=== PATIENT | female | born 1935 | race Caucasian/White ===

== ENCOUNTER 2021-10-08 15:34 | Inpatient (IN) | payer MEDICARE, OTHER ==
[~2021-10-08] VITALS: Ht 165.1 cm; Wt 75.7 kg
--- NOTE | 2021-10-08 15:56 | NUR ---
BIB CAREGIVER FOR COUGH, SOB, N/V/D/ GENERALIZED WEAKNESS X 10 DAYS. ALERT AND ORIENTED X4. DENIES PAIN. ATTACHED TO THE MONITOR.
--- NOTE | 2021-10-08 15:57 | NUR ---
DR TRUONG AT THE BEDSIDE
--- NOTE | 2021-10-08 16:22 | NUR ---
X-RAY TECH AT THE BEDSIDE
[2021-10-08] MEDS ORDERED: VANCOMYCIN 1 GM in IV D5W 250 ML IV ONE (16:30)
[2021-10-08] MEDS ORDERED: CEFEPIME 1 GM in IV D5W 50 ML IV ONE (16:30)
[2021-10-08] MEDS ORDERED: IV NS 0.9% 1,000 ML BAG IV ONE (16:30)
[2021-10-08 16:34] LABS: EOSINOPHILS % (AUTO) 0.1 % (0.0-6.0); HEMATOCRIT 38 % (33-45); HEMOGLOBIN 12.1 g/dL (11.5-14.8); MEAN CORPUSCULAR HGB CONC 32 g/dl (31.0-36.0); MEAN CORPUSCULAR VOLUME 89 fL (82-100); MONOCYTES # (AUTO) 0.4 K/uL (0.1-1.30); MONOCYTES % (AUTO) 9.3 % (2.0-12.0); NEUTROPHILS # (AUTO) 1.8 K/uL (1.8-8.9); NEUTROPHILS % (AUTO) 42.6 % (43.0-81.0); PLATELET COUNT (AUTO) 196 K/uL (150-450); RED BLOOD CELL COUNT(AUTO) 4.24 MIL/uL (4.0-5.2); WHITE BLOOD COUNT (AUTO) 4.2 K/uL (4.3-11.0)
[2021-10-08 17:01] LABS: ALANINE AMINOTRANSFERASE 27 U/L (12-78); ALBUMIN 3.6 g/dL (3.4-5.0); ALKALINE PHOSPHATASE 54 U/L (46-116); ASPARTATE AMINOTRANSFERASE 24 U/L (15-37); BILIRUBIN,DIRECT 0.1 mg/dL (0.0-0.2); BILIRUBIN,TOTAL 0.3 mg/dL (0.2-1.0); CALCIUM, SERUM 8.9 mg/dL (8.5-10.1); CARBON DIOXIDE 30 mmol/L (21-32); CHLORIDE 102 mmol/L (98-107); CREATININE 1.4 mg/dL (0.6-1.3); GLUCOSE 119 mg/dL (74-106); POTASSIUM 3.8 mmol/L (3.5-5.1); SODIUM SERUM 139 mmol/L (136-145); TOTAL PROTEIN, SERUM 7.5 g/dL (6.4-8.2); UREA NITROGEN, BLOOD 10 mg/dL (7-18)
--- NOTE | 2021-10-08 17:12 | NUR ---
CALLED NURSING SUP FOR BED
[2021-10-08] MEDS ORDERED: LORAZEPAM INJ 2 MG/ML VIAL ONE (17:19)
[2021-10-08 17:20] LABS: BILIRUBIN,URINE NEGATIVE (NEGATIVE); COLOR,URINE YELLOW (YELLOW); LEUKOCYTE ESTERASE ,URINE SMALL (NEGATIVE); NITRITE, URINE NEGATIVE (NEGATIVE); PH,URINE 6.5 (5.0-8.0); PROTEIN,URINE NEGATIVE (NEGATIVE); UGLUCOSE NEGATIVE (NEGATIVE); UROBILINOGEN,URINE 0.2 EU/dL (0.2)
--- NOTE | 2021-10-08 17:23 | NUR ---
DR. GUTHRIE TO DR. FERNANDEZ
[2021-10-08 17:39] LABS: BACTERIA,URINE 2+ /HPF (None Seen)
--- NOTE | 2021-10-08 17:57 | NUR ---
NURSING SUP CALLED AND BED IS 116-1. WAIT UNTIL 1814 TO GIVE REPORT AND TRANSFER
--- NOTE | 2021-10-08 18:05 | NUR ---
DR. FERNANDEZ ASKED DR. TRUONG TO PRESENT PATIENT TO NIGHT PHYSICIAN, DR. MANE. WILL PAGE EPIC ONCE LABORATORY COURIER BEGINS.
--- NOTE | 2021-10-08 18:08 | NUR ---
REPORT GIVEN TO TALISHA GRUBBS FOR ROSHAN
--- NOTE | 2021-10-08 19:47 | NUR ---
PT TRANSPORTED TO UNIT ON GURNEY WITH EMT AND RN AT BEDSIDE W/ ACLS PROTOCOL. NAD NOTED DURING TRANSPORT.
--- NOTE | 2021-10-08 19:55 | NUR ---
SUMIT/TEST MANAGER PT CAME FROM ER IN [facility]. NO REPORT WAS GIVEN TO ME BUT WAS GIVEN TO DAY SHIFT NURSE. ORDERS WERE RECIEVED AND CARRIED OUT.
[2021-10-08 20:00] VITALS: BP 133/74
[2021-10-08] MEDS ORDERED: MORPHINE SULFATE INJ 2 MG/ML DISP.SYRIN IV PRN (20:00)
[2021-10-08] MEDS ORDERED: DEXAMETHASONE 4 MG TABLET PO SCH (20:00)
[2021-10-08] MEDS ORDERED: hydrALAZINE HCL IV 20 MG VIAL IV PRN (20:00)
[2021-10-08] MEDS ORDERED: ALBUTEROL HALF STRENGTH 1.25 MG/3 ML VIAL.NEB NEB PRN (20:00)
[2021-10-08] MEDS ORDERED: LABETALOL 20 MG/4 ML VIAL IV PRN (20:00)
[2021-10-08] MEDS ORDERED: ENOXAPARIN SODIUM 40 MG/0.4 ML DISP.SYRIN SQ SCH (20:00)
[2021-10-08] MEDS ORDERED: ACETAMINOPHEN 325 MG TABLET PO PRN (20:00)
[2021-10-08] MEDS ORDERED: ONDANSETRON HCL/PF 4 MG/2 ML VIAL IVP PRN (20:00)
[2021-10-08] MEDS ORDERED: DEXTROSE 50%-WATER 50 ML DISP.SYRIN IV PRN (20:30)
--- NOTE | 2021-10-08 20:30 | NUR ---
SUMIT/PLANT WIRE CHIEF PT IS IN ISOLATION FOR COVID POSITIVE. ALSO MADE CHARGE NURSE AWARE THAT ER DID NOT DO MED. RECON FOR THIS PT.
[2021-10-08] MEDS: CEFTRIAXONE 1 G in IV D5W 50 ML IV SCH (22:00)
--- NOTE | 2021-10-08 22:00 | NUR ---
ICU/IRON ERECTOR PT WAS CHANGED FOR A SECOND TIME, VIA DIAPER. ALSO PT'S BLOOD SUGAR WAS 101, WITH NO COVERAGE. CALL LIGHT WITHIN REACH.
[2021-10-08] MEDS: methylPREDNISolone SOD SUCC 125 MG/2ML VIAL IV SCH ×2 (22:01→22:03)
[2021-10-08] MEDS: HEPARIN SODIUM, PORCINE 5000 UNITS/1 ML VIAL SQ SCH (22:02)
[2021-10-08] MEDS: BLOOD SUGAR DIAGNOSTIC 1 EACH STRIP IN SCH (22:34)
[2021-10-08] MEDS: IV NS 0.9% 1,000 ML IV PRN (23:30)
[2021-10-09] VITALS: BP 130/68
--- NOTE | 2021-10-09 00:20 | NUR ---
SUMIT/PRESSER HAND GUEVARA CATH ORDER WAS RECIEVED AND PLACED DUE TO PT'S FREQUENT CHANGING AND ISO FOR COVID POSITIVE. PT TOLERATED THIS WELL.
--- NOTE | 2021-10-09 02:30 | NUR ---
SUMIT/VICE PRESIDENT NETWORK DEVELOPMENT PT APPEARS TO BE RESTING NO DISTRESS SEEN AT THIS TIME. CALL LIGHT WITHIN REACH.
[2021-10-09 04:00] VITALS: BP 111/69
--- NOTE | 2021-10-09 04:00 | NUR ---
SUMIT/E/M ENGINEER LATE ENTRY REPEAT LABS WERE DONE EARLY IN SHIFT NO ABNORMALS.
[2021-10-09] MEDS: methylPREDNISolone SOD SUCC 125 MG/2ML VIAL IV SCH ×2 (04:44→12:47)
[2021-10-09] MEDS: BLOOD SUGAR DIAGNOSTIC 1 EACH STRIP IN SCH ×4 (06:20→22:44)
[2021-10-09] MEDS: INSULIN REGULAR, HUMAN 100 UNIT/ML 3 ML VIAL SQ PRN ×4 (06:22→22:47)
--- NOTE | 2021-10-09 07:30 | NUR ---
BOARDING MOTHER OPENING NOTES RECEIVED PT IN BED ON SEMI HUYNH'S. A/O X4. ON 4L O2 VIA NC. NO SOB OR ANY S/SX OF RESPIRATORY DISTRESS AT THIS TIME. PATIENT ON N/C 3L SATURATION @97-98%. SR- ST ON THE MONITOR. IV ACCESS LAC #20 AND INTACT, PATENT AND FLUSHED. INFUSING NS @75 ML/HR. SAFETY MEASURES IMPLEMENTED. CALL LIGHT WITHIN REACH. BED ALARM IS ON. BED LOCKED AND IN LOWEST POSITION WITH SIDE RAILS UP X3. Addendum: 10/09/21 at 1003 by ARINA WOODS RN PATIENT IS ON 3L NC SAT 97-98%
[2021-10-09 07:39] LABS: BASOPHILS % (AUTO) 0.5 % (0.0-2.0); HEMATOCRIT 35 % (33-45); HEMOGLOBIN 11.6 g/dL (11.5-14.8); LYMPHOCYTES # (AUTO) 0.8 K/uL (0.8-4.8); LYMPHOCYTES % (AUTO) 33.7 % (20.0-44.0); MEAN CORPUSCULAR HGB CONC 33 g/dl (31.0-36.0); MEAN CORPUSCULAR VOLUME 87 fL (82-100); NEUTROPHILS # (AUTO) 1.6 K/uL (1.8-8.9); NEUTROPHILS % (AUTO) 63.8 % (43.0-81.0); PLATELET COUNT (AUTO) 184 K/uL (150-450); RED BLOOD CELL COUNT(AUTO) 4.03 MIL/uL (4.0-5.2); WHITE BLOOD COUNT (AUTO) 2.5 K/uL (4.3-11.0)
--- NOTE | 2021-10-09 07:40 | NUR ---
SUMIT/VERTICAL MILL OPERATOR REPORT GIVEN TO DAY SHIFT NURSE. MADE HER AWARE ABOUT MED. RECON WASN'T DONE BUT NEEDS TO BE DONE.
[2021-10-09 08:00] VITALS: BP 124/85
[2021-10-09 08:05] LABS: ALBUMIN 3.2 g/dL (3.4-5.0); BILIRUBIN,TOTAL 0.3 mg/dL (0.2-1.0); CALCIUM, SERUM 8.3 mg/dL (8.5-10.1); CREATININE 0.9 mg/dL (0.6-1.3); MAGNESIUM 1.5 mg/dL (1.8-2.4); PHOSPHORUS 3.5 mg/dL (2.5-4.9); POTASSIUM 3.2 mmol/L (3.5-5.1); TOTAL PROTEIN, SERUM 6.9 g/dL (6.4-8.2)
[2021-10-09] MEDS: FLUTICASONE/VILANTEROL 1 EACH BLST.W.DEV IH SCH (08:52)
[2021-10-09] MEDS: HEPARIN SODIUM, PORCINE 5000 UNITS/1 ML VIAL SQ SCH (08:54)
[2021-10-09] MEDS ORDERED: AMIT10TA6 PO (09:31)
[2021-10-09] MEDS ORDERED: ATOR20TA PO (09:34)
[2021-10-09] MEDS ORDERED: ASPI-1169 PO (09:34)
[2021-10-09] MEDS ORDERED: SERT25TA PO (10:07)
[2021-10-09] MEDS ORDERED: BISA-79 RC (10:07)
[2021-10-09] MEDS ORDERED: LISI20TA31 PO (10:07)
[2021-10-09] MEDS ORDERED: VITA1TAB31 PO (10:07)
[2021-10-09] MEDS ORDERED: ONDA4TAB11 PO (10:07)
[2021-10-09] MEDS ORDERED: POTA-10 PO (10:07)
[2021-10-09] MEDS ORDERED: OMEP40CA21 PO (10:07)
[2021-10-09] MEDS ORDERED: DORZ10DR13 LEFTEYE (10:07)
[2021-10-09] MEDS ORDERED: LATA2.5D15 EACHEYE (10:07)
[2021-10-09] MEDS ORDERED: GABA-532 PO (10:07)
[2021-10-09] MEDS ORDERED: DIFL5DRO OP (10:07)
[2021-10-09] MEDS: Magnesium 1GM/D5W 100ML PREMIX 100 ML IV SCH ×2 (10:45→12:23)
[2021-10-09] MEDS: POTASSIUM CHLORIDE 20 MEQ TAB.PRT.SR PO SCH ×2 (11:11→12:47)
[2021-10-09 12:00] VITALS: BP 116/68
[2021-10-09 16:00] VITALS: BP 112/68
[2021-10-09] MEDS: ENOXAPARIN SODIUM 80 MG/0.8 ML DISP.SYRIN SQ SCH (18:02)
[2021-10-09] MEDS: IV NS 0.9% 1,000 ML IV PRN (18:03)
[2021-10-09] MEDS ORDERED: REMDESIVIR (CHARGED) 200 MG, *LOADING DOSE 1 EA in IV NS 0.9% 210 ML IV ONE ×2 (18:50→20:00)
--- NOTE | 2021-10-09 19:18 | NUR ---
ENGINE LATHE OPERATOR CLOSING NOTES NO SIGNIFICANT CHANGES THROUGHOUT THE SHIFT. NO SOB. DENIES PAIN. ALL DUE MEDS GIVEN. NEEDS ATTENDED PATEIN IS ABLE TO VERBALIZE NEEDS. KEPT CLEAN AND COMFORTABLE. SAFETY MEASURES IN PLACE. CALL LIGHT WITHIN REACH, BED IN LOWEST POSITION, 2 SIDE RAILS UP. WILL ENDORSE TO NIGHT RN FOR ROSHAN.
[2021-10-09 20:00] VITALS: BP 112/67
[2021-10-09] MEDS: CEFTRIAXONE 1 G in IV D5W 50 ML IV SCH (20:15)
[2021-10-10] VITALS: BP 113/64
[2021-10-10 04:00] VITALS: BP 149/74
[2021-10-10] MEDS: ENOXAPARIN SODIUM 80 MG/0.8 ML DISP.SYRIN SQ SCH (05:15)
--- NOTE | 2021-10-10 07:30 | NUR ---
CORE ANALYST AM NOTES RECEIVED PT IN BED, SEMI HUYNH'S. A/O X4. ECUADOREAN SPEAKING, ON 3L O2 VIA NC. NO SOB OR ANY S/SX OF RESPIRATORY DISTRESS AT THIS TIME. PATIENT ON N/C 3L SATURATION @94 %. SR HR 87 ON THE MONITOR. DENIES PAIN, IV ACCESS RFA 20G. AND JUNI MIDLINE 18G FLUSHES WELL, BOTH SITES CLEAR. GUEVARA IN PLACED, DRAINING YELLOW COLORED URINE. ADEQUATE AMOUNT. INDEPENDENT OF BED MOBILITY. REGULAR DIET. POC DISCUSSED WITH SERVICE DELIVERY CONSULTANT, VERBALIZED UNDERSTANDING. SAFETY MEASURES IMPLEMENTED. CALL LIGHT WITHIN REACH. BED ALARM IS ON. BED LOCKED AND IN LOWEST POSITION WITH SIDE RAILS UP X2. WILL CONT TO MONITOR.
[2021-10-10 08:00] VITALS: BP 115/58
[2021-10-10] MEDS: BLOOD SUGAR DIAGNOSTIC 1 EACH STRIP IN SCH ×4 (08:01→22:53)
[2021-10-10 08:52] LABS: BASOPHILS % (AUTO) 0.3 % (0.0-2.0); EOSINOPHILS % (AUTO) 1.3 % (0.0-6.0); HEMATOCRIT 37 % (33-45); HEMOGLOBIN 12.3 g/dL (11.5-14.8); LYMPHOCYTES # (AUTO) 1.2 K/uL (0.8-4.8); LYMPHOCYTES % (AUTO) 8.6 % (20.0-44.0); MEAN CORPUSCULAR HGB CONC 33 g/dl (31.0-36.0); MEAN CORPUSCULAR VOLUME 91 fL (82-100); MONOCYTES # (AUTO) 0.7 K/uL (0.1-1.30); MONOCYTES % (AUTO) 4.7 % (2.0-12.0); NEUTROPHILS # (AUTO) 12.2 K/uL (1.8-8.9); NEUTROPHILS % (AUTO) 85.1 % (43.0-81.0); PLATELET COUNT (AUTO) 228 K/uL (150-450); RED BLOOD CELL COUNT(AUTO) 4.13 MIL/uL (4.0-5.2); WHITE BLOOD COUNT (AUTO) 14.3 K/uL (4.3-11.0)
--- NOTE | 2021-10-10 09:30 | NUR ---
RN NOTES DUE MEDS GIVEN
[2021-10-10] MEDS: DEXAMETHASONE SOD PHOSPHATE 10 MG/ML VIAL IV SCH (09:58)
[2021-10-10] MEDS: FLUTICASONE/VILANTEROL 1 EACH BLST.W.DEV IH SCH (09:59)
--- NOTE | 2021-10-10 11:24 | NUR ---
RN NOTES MORPHINE SULFATE 2MG/ML PULLED OUT FROM [employer]. FORGOT TO SCAN. ADMINISTERED TO PT. Addendum: 10/10/21 at 1150 by KASSANDRA BYRNE RN ADDENDUM COLLEAGUE ZACK HAN RN, PULLED OUT MEDICATION FROM [employer], VERIFIED WITH ME DOSE TO ADMINISTER. BUT FORGOT TO SCAN. ADMINISTERED TO PATIENT. NOTIFIED PHARMACY.
--- NOTE | 2021-10-10 11:53 | NUR ---
RN NOTES PER DR. OLIVAREZ, WILL SCHEDULE A CT PULMONARY ANGIOGRAM FOR PLEURITIC PAIN.
[2021-10-10 12:00] VITALS: BP 126/89
[2021-10-10] MEDS ORDERED: BISACODYL (5 MG) 5 MG TABLET.DR PO PRN (12:00)
[2021-10-10] MEDS ORDERED: HOME MED MISCELLANEOUS XX SCH (12:00)
[2021-10-10 12:12] LABS: BILIRUBIN,DIRECT 0.1 mg/dL (0.0-0.2); BILIRUBIN,TOTAL 0.2 mg/dL (0.2-1.0); MAGNESIUM 1.6 mg/dL (1.8-2.4); TOTAL PROTEIN, SERUM 6.7 g/dL (6.4-8.2)
[2021-10-10] MEDS: INSULIN REGULAR, HUMAN 100 UNIT/ML 3 ML VIAL SQ PRN ×3 (15:21→23:11)
[2021-10-10 16:00] VITALS: BP 128/66
[2021-10-10] MEDS ORDERED: TIMOLOL MAL/DORZOLAM HCL OPHTH 10 ML BOTTLE LEFTEYE SCH ×2 (17:00)
[2021-10-10] MEDS: PREDNISOLONE AC 1% OP SCH (17:42)
[2021-10-10] MEDS: EYE OP SCH (17:42)
[2021-10-10] MEDS: GABAPENTIN 100 MG CAPSULE PO SCH (17:42)
[2021-10-10] MEDS: AMITRIPTYLINE HCL 10 MG TABLET PO SCH (17:43)
[2021-10-10] MEDS: ENOXAPARIN SODIUM 40 MG/0.4 ML DISP.SYRIN SQ SCH (17:43)
[2021-10-10] MEDS: [UNRECOGNIZED DRUG - OTHER] LEFTEYE SCH (17:45)
[2021-10-10] MEDS: EYE LEFTEYE SCH (17:45)
--- NOTE | 2021-10-10 18:52 | NUR ---
HEAD REFRIGERATION ENGINEER CLOSING NOTES NO SIGNIFICANT CHANGES THROUGHOUT THE SHIFT. NO SOB. DENIES PAIN. ALL DUE MEDS GIVEN. NEEDS ATTENDED TO THROUGHOUT SHIFT. PT. IS ABLE TO VERBALIZE NEEDS. KEPT CLEAN AND COMFORTABLE. SAFETY MEASURES IN PLACE. CALL LIGHT WITHIN REACH, BED IN LOWEST LOCKED POSITION, 2 SIDE RAILS UP. WILL ENDORSE TO NIGHT RN.
--- NOTE | 2021-10-10 19:35 | NUR ---
RN OPENING NOTES RECEIVED PATIENT IN BED, ALERT AND VERBALLY RESPONSIVE, SLOVAK SPEAKING. RESPIRATORY EVEN AND UNLABORED, NO SOB NOTED AT THIS TIME, ON 3PLM VIA NASAL CANULA @ 94% SATURATION. NOTED WITH JUNI MIDLINE G20 PATENT, INTACT FLUSHING WELL. NO S/S OF INFECTION OR INFILTRATION. SAFETY MEASURES IMPLEMENTED. PATIENT BED ALARM IS ON. HEAD OF BED ELEVATED. BED IS LOCKED, IN LOWEST POSITION AND SIDE RAILS UP. CALL LIGHT WITHIN REACH OF THE PATIENT. WILL CONTINUE TO MONITOR AND REASSESS FOR ANY CHANGES.
[2021-10-10 20:00] VITALS: BP 119/55
[2021-10-10] MEDS ORDERED: REMDESIVIR (CHARGED) 100 MG in IV NS 0.9% 230 ML IV SCH (20:00)
[2021-10-10] MEDS: ATORVASTATIN 10 MG TABLET PO SCH (22:05)
[2021-10-11] VITALS: BP_SYST 124; BP_DIAS 47; BP_DIAS 70
[2021-10-11 04:00] VITALS: BP 120/71
[2021-10-11] MEDS: ENOXAPARIN SODIUM 40 MG/0.4 ML DISP.SYRIN SQ SCH ×2 (05:47→17:23)
--- NOTE | 2021-10-11 06:45 | NUR ---
RN CLOSING NOTES RN OPENING NOTES PATIENT IN BED SLEEPING COMFORTABLE ON BED, RESPIRATORY EVEN AND UNLABORED, NO SOB NOTED AT THIS TIME. NO SIGNIFICANT CHANGES THROUGH OUT THE SHIFT. REMDESIVIR GIVEN, TOLERATED WELL, NO ADVERSE REACTION NOTED. SAFETY MEASURES IMPLEMENTED. PATIENT BED ALARM IS ON. HEAD OF BED ELEVATED. BED IS LOCKED, IN LOWEST POSITION AND SIDE RAILS UP. CALL LIGHT WITHIN REACH OF THE PATIENT. WILL CONTINUE TO MONITOR AND REASSESS FOR ANY CHANGES.
--- NOTE | 2021-10-11 07:20 | NUR ---
FARMWORKER LIVESTOCK OPENING NOTE PATIENT IN BED SLEEPING COMFORTABLE ON BED, NO SOB NOTED AT THIS TIME PATIENT ON 2L NC WITH O2 SAT OF 94-95 , NO COMPLAINTS OF PAIN AT THIS TIME. JUNI MIDLINE INTACT. SAFETY MEASURES IMPLEMENTED. PATIENT BED ALARM IS ON. HEAD OF BED ELEVATED. BED IS LOCKED, IN LOWEST POSITION AND SIDE RAILS UP. CALL LIGHT WITHIN REACH OF THE PATIENT..
[2021-10-11 07:40] LABS: BASOPHILS % (AUTO) 0.1 % (0.0-2.0); HEMATOCRIT 34 % (33-45); HEMOGLOBIN 11.2 g/dL (11.5-14.8); LYMPHOCYTES # (AUTO) 1.2 K/uL (0.8-4.8); LYMPHOCYTES % (AUTO) 9.5 % (20.0-44.0); MEAN CORPUSCULAR HGB CONC 34 g/dl (31.0-36.0); MEAN CORPUSCULAR VOLUME 86 fL (82-100); MONOCYTES # (AUTO) 0.5 K/uL (0.1-1.30); MONOCYTES % (AUTO) 4.4 % (2.0-12.0); NEUTROPHILS # (AUTO) 10.8 K/uL (1.8-8.9); PLATELET COUNT (AUTO) 210 K/uL (150-450); RED BLOOD CELL COUNT(AUTO) 3.88 MIL/uL (4.0-5.2); WHITE BLOOD COUNT (AUTO) 12.5 K/uL (4.3-11.0)
[2021-10-11] MEDS: BLOOD SUGAR DIAGNOSTIC 1 EACH STRIP IN SCH ×4 (07:57→21:57)
[2021-10-11 08:00] VITALS: BP 129/75
[2021-10-11 08:08] LABS: ALBUMIN 2.8 g/dL (3.4-5.0); BILIRUBIN,DIRECT 0.1 mg/dL (0.0-0.2); BILIRUBIN,TOTAL 0.3 mg/dL (0.2-1.0); CALCIUM, SERUM 8.2 mg/dL (8.5-10.1); CREATININE 0.9 mg/dL (0.6-1.3); POTASSIUM 3.5 mmol/L (3.5-5.1); TOTAL PROTEIN, SERUM 6.4 g/dL (6.4-8.2)
[2021-10-11] MEDS: ASPIRIN 81 MG TAB.CHEW PO SCH (08:11)
[2021-10-11] MEDS: EYE OP SCH ×3 (08:11→17:20)
[2021-10-11] MEDS: VITAMIN B COMP W-C 1 TAB TABLET PO SCH (08:11)
[2021-10-11] MEDS: EYE LEFTEYE SCH ×2 (08:11→17:19)
[2021-10-11] MEDS: PREDNISOLONE AC 1% OP SCH ×3 (08:11→17:20)
[2021-10-11] MEDS: [UNRECOGNIZED DRUG - OTHER] LEFTEYE SCH ×2 (08:11→17:19)
[2021-10-11] MEDS: GABAPENTIN 100 MG CAPSULE PO SCH ×2 (08:11→17:19)
[2021-10-11] MEDS: SERTRALINE HCL 25 MG TABLET PO SCH (08:11)
[2021-10-11] MEDS: LISINOPRIL (20MG) 20 MG TABLET PO SCH (08:12)
[2021-10-11] MEDS: DEXAMETHASONE SOD PHOSPHATE 10 MG/ML VIAL IV SCH (08:12)
[2021-10-11] MEDS: FLUTICASONE/VILANTEROL 1 EACH BLST.W.DEV IH SCH (08:20)
[2021-10-11] MEDS: Magnesium 1GM/D5W 100ML PREMIX 100 ML IV SCH ×2 (10:44→11:41)
[2021-10-11 12:00] VITALS: BP 108/62
[2021-10-11] MEDS: INSULIN REGULAR, HUMAN 100 UNIT/ML 3 ML VIAL SQ PRN ×2 (12:15→22:01)
[2021-10-11 16:00] VITALS: BP 115/68
[2021-10-11] MEDS: AMITRIPTYLINE HCL 10 MG TABLET PO SCH (17:19)
--- NOTE | 2021-10-11 18:43 | NUR ---
RN CLOSING NOTE PATIENT IN BED COMFORTABLE ON BED, RESPIRATORY EVEN AND UNLABORED, NO SOB NOTED AT THIS TIME. NO SIGNIFICANT CHANGES THROUGH OUT THE SHIFT. REMDESIVIR AND GIVEN, TOLERATED WELL, NO ADVERSE REACTION NOTED PATIENT IS ABLE TO VERBALIZE NEEDS. SAFETY MEASURES IMPLEMENTED. PATIENT BED ALARM IS ON. HEAD OF BED ELEVATED. BED IS LOCKED, IN LOWEST POSITION AND SIDE RAILS UP. CALL LIGHT WITHIN REACH OF THE PATIENT. WILL ENDORSE TO SCIENTIFIC EDITOR NURSE FOR ROSHAN
--- NOTE | 2021-10-11 19:30 | NUR ---
PATTERN DEVELOPER OPENING NOTES: RECEIVED PATIENT FROM DAY SHIFT, PATIENT A/O X4, IN BED, NO SOB, NO DISTRESS NOTED, ON 2L NC, SATURATING 95%, TELE MONITOR SHOWS NSR, JUNI MIDLINE PATENT AND INTACT, BED AT LOWEST POSITION, BRAKES LOCKED AND IN PLACE, SIDE RAILS UP X2, AND CALL LIGHT WITHIN REACH. WILL CONTINUE TO MONITOR AND IMPLEMENT NURSING INTERVENTIONS NECESSARY.
[2021-10-11 20:00] VITALS: BP 119/70
[2021-10-11] MEDS: REMDESIVIR (CHARGED) 100 MG in IV NS 0.9% 100 ML IV SCH (20:33)
[2021-10-11] MEDS: ATORVASTATIN 10 MG TABLET PO SCH (21:52)
[2021-10-12] VITALS: BP 128/81
[2021-10-12 04:00] VITALS: BP 125/72
[2021-10-12] MEDS: ENOXAPARIN SODIUM 40 MG/0.4 ML DISP.SYRIN SQ SCH ×2 (05:32→17:18)
--- NOTE | 2021-10-12 07:05 | NUR ---
CUFF RUNNER CLOSING NOTES: PATIENT IN BED, SLEEPING, A/O X4, NC RUNNING AT 2L, SATURATING 94%, PATIENT HAS JUNI MIDLINE INTACT AND PATENT, BED AT LOWEST POSITION, BRAKES LOCKED AND IN PLACE, SIDE RAILS UP X2, CALL LIGHT WITHIN REACH, WILL CONTINUE TO MONITOR AND ENDORSE TO DAY SHIFT NURSE.
--- NOTE | 2021-10-12 07:37 | NUR ---
RN NOTE PATIENT IS IN BED WITH HOB AT SEMI FOWLERS POSITION. PATIENT IS ON 2L NC WITH NO SIGNS OF LABORED BREATHING. PATIENT IS AOX4. GUEVARA CATH IS IN PLACE. JUNI MIDLINE IS PATENT AND INTACT. BED IS LOCKED IN THE LOWEST POSITION, 3 GUARD RAILS RAISED, CALL WILLIS WITHIN REACH, AND ALL HOSPITAL SAFETY PRECAUTIONS ARE BEING FOLLOWED. WILL CONTINUE TO MONITOR THROUGHOUT SHIFT.
[2021-10-12] MEDS: BLOOD SUGAR DIAGNOSTIC 1 EACH STRIP IN SCH ×4 (07:39→21:18)
[2021-10-12 08:00] VITALS: BP 125/71
[2021-10-12] MEDS: LISINOPRIL (20MG) 20 MG TABLET PO SCH (08:36)
[2021-10-12] MEDS: ASPIRIN 81 MG TAB.CHEW PO SCH (08:36)
[2021-10-12] MEDS: SERTRALINE HCL 25 MG TABLET PO SCH (08:36)
[2021-10-12] MEDS: GABAPENTIN 100 MG CAPSULE PO SCH ×2 (08:36→17:16)
[2021-10-12] MEDS: VITAMIN B COMP W-C 1 TAB TABLET PO SCH (08:36)
[2021-10-12] MEDS: DEXAMETHASONE SOD PHOSPHATE 10 MG/ML VIAL IV SCH (08:36)
[2021-10-12] MEDS: FLUTICASONE/VILANTEROL 1 EACH BLST.W.DEV IH SCH (08:36)
[2021-10-12] MEDS: EYE LEFTEYE SCH ×2 (08:37→17:19)
[2021-10-12] MEDS: [UNRECOGNIZED DRUG - OTHER] LEFTEYE SCH ×2 (08:37→17:19)
[2021-10-12] MEDS: EYE OP SCH ×3 (08:37→17:19)
[2021-10-12] MEDS: PREDNISOLONE AC 1% OP SCH ×3 (08:37→17:19)
[2021-10-12 09:02] LABS: BASOPHILS # (AUTO) 0.1 K/uL (0.0-0.2); BASOPHILS % (AUTO) 0.7 % (0.0-2.0); HEMATOCRIT 34 % (33-45); HEMOGLOBIN 11.3 g/dL (11.5-14.8); LYMPHOCYTES # (AUTO) 1.2 K/uL (0.8-4.8); MEAN CORPUSCULAR HGB CONC 33 g/dl (31.0-36.0); MEAN CORPUSCULAR VOLUME 87 fL (82-100); MONOCYTES # (AUTO) 0.5 K/uL (0.1-1.30); MONOCYTES % (AUTO) 4.8 % (2.0-12.0); NEUTROPHILS # (AUTO) 9.4 K/uL (1.8-8.9); NEUTROPHILS % (AUTO) 83.5 % (43.0-81.0); PLATELET COUNT (AUTO) 190 K/uL (150-450); RED BLOOD CELL COUNT(AUTO) 3.94 MIL/uL (4.0-5.2); WHITE BLOOD COUNT (AUTO) 11.2 K/uL (4.3-11.0)
[2021-10-12 09:54] LABS: ALBUMIN 2.7 g/dL (3.4-5.0); BILIRUBIN,DIRECT 0.1 mg/dL (0.0-0.2); BILIRUBIN,TOTAL 0.3 mg/dL (0.2-1.0); CALCIUM, SERUM 8.1 mg/dL (8.5-10.1); POTASSIUM 3.5 mmol/L (3.5-5.1); TOTAL PROTEIN, SERUM 6.2 g/dL (6.4-8.2)
[2021-10-12] MEDS: INSULIN REGULAR, HUMAN 100 UNIT/ML 3 ML VIAL SQ PRN ×3 (11:36→21:24)
[2021-10-12 12:00] VITALS: BP 113/65
[2021-10-12 16:00] VITALS: BP 123/73
[2021-10-12] MEDS: AMITRIPTYLINE HCL 10 MG TABLET PO SCH (17:19)
--- NOTE | 2021-10-12 18:40 | NUR ---
RN NOTE PATIENT IS IN BED WITH HOB AT SEMI FOWLERS POSITION. PATIENT IS ON 2L NC WITH NO SIGNS OF LABORED BREATHING. PATIENT IS AOX4. GUEVARA CATH IS IN PLACE. JUNI MIDLINE IS PATENT AND INTACT. BED IS LOCKED IN THE LOWEST POSITION, 3 GUARD RAILS RAISED, CALL WILLIS WITHIN REACH, AND ALL HOSPITAL SAFETY PRECAUTIONS ARE BEING FOLLOWED. ALL DUE MEDS GIVEN AND PATIENT REMAINED STABLE THROUGHOUT SHIFT. WILL ENDORSE TO TABLE INSPECTOR RN.
[2021-10-12] MEDS: REMDESIVIR (CHARGED) 100 MG in IV NS 0.9% 100 ML IV SCH (19:58)
[2021-10-12 20:00] VITALS: BP 116/85
--- NOTE | 2021-10-12 20:00 | NUR ---
CLINICAL APPEALS AUDITOR OPENING NOTE, RECEIVED PATIENT IN BED RESTING. A/O X 4,KYRGYZ SPEAKING. WITH NO SOB. PATIENT HAD REMOVED N/C THAT WAS RUNNING AT 2 L, AND HER O2 WAS AT 92% AT ROOM AIR. REPLACED THE N/C AND EDUCATED PATIENT TO NOT REMOVE IT. SHE WAS COMPLAINING OR MINOR BACK PAIN, LEG PAIN AND PAIN IN THE STOMACH. ON TELE MONITOR WITH SINUS RHYTHM OF 62. JUNI ML FLUSHED AND PATENT, RUNNING RUNNING VEKLURY WITH NO INFILTRATION NOTED. GUEVARA CATHETER NOTED, INTACT AND DRAINING BY GRAVITY, YELLOW COLOR URINE. .PATIENT REMAINS IN COVID ISOLATION, PER + PCR RESULT. ISOLATION PRECAUTIONS TAKEN, ALL NEEDS ATTENDED. BED IN LOW POSITION, LOCKED, CALL LIGHT WITHIN REACH. V/S STABLE. CONTINUE TO MONITOR.
[2021-10-12] MEDS: ATORVASTATIN 10 MG TABLET PO SCH (21:17)
[2021-10-13] VITALS: BP 139/78
[2021-10-13 04:00] VITALS: BP 116/64
[2021-10-13] MEDS: ENOXAPARIN SODIUM 40 MG/0.4 ML DISP.SYRIN SQ SCH ×2 (05:34→16:47)
--- NOTE | 2021-10-13 06:51 | NUR ---
SIDE STAPLER NOTE NO CHANGE DURING THE SHIFT, NO DISCOMFORT OR DISTRESS NOTED. SINUS RHYTHM DURING THE SHIFT, SIDE RAILS UP. CALL LIGHT WITHIN REACH, WILL ENDORSE TO DAY SHIFT NURSE.
[2021-10-13 07:10] LABS: BASOPHILS % (AUTO) 0.1 % (0.0-2.0); HEMATOCRIT 34 % (33-45); HEMOGLOBIN 11.2 g/dL (11.5-14.8); LYMPHOCYTES # (AUTO) 1.4 K/uL (0.8-4.8); LYMPHOCYTES % (AUTO) 14.6 % (20.0-44.0); MEAN CORPUSCULAR HGB CONC 33 g/dl (31.0-36.0); MEAN CORPUSCULAR VOLUME 87 fL (82-100); MONOCYTES # (AUTO) 0.8 K/uL (0.1-1.30); MONOCYTES % (AUTO) 8.5 % (2.0-12.0); NEUTROPHILS # (AUTO) 7.4 K/uL (1.8-8.9); NEUTROPHILS % (AUTO) 76.8 % (43.0-81.0); PLATELET COUNT (AUTO) 230 K/uL (150-450); RED BLOOD CELL COUNT(AUTO) 3.85 MIL/uL (4.0-5.2); WHITE BLOOD COUNT (AUTO) 9.6 K/uL (4.3-11.0)
--- NOTE | 2021-10-13 07:38 | NUR ---
RN OPENING NOTES RECEIVED PT ON BED, AWAKE, A/O X4, NO SIGNS OF ACUTE RESPIRATORY DISTRESS NOTED. ON O2 @2LPM VIA N/C, SATURATION @99%, BREATHING EVEN AND UNLABORED. NO C/O PAIN OR DISCOMFORT AT THIS TIME. WITH JUNI ML #18G INTACT AND PATENT WITH NS @120ML/HR RUNNING. SAFETY MEASURES IN PLACE, BED LOCKED AND IN LOWEST POSITION, SR UP X2, CALL LIGHT PLACED WITHIN EASY REACH. WILL CONTINUE TO MONITOR.
[2021-10-13 07:48] LABS: ALBUMIN 2.6 g/dL (3.4-5.0); BILIRUBIN,DIRECT 0.1 mg/dL (0.0-0.2); BILIRUBIN,TOTAL 0.2 mg/dL (0.2-1.0); CALCIUM, SERUM 8.4 mg/dL (8.5-10.1); CREATININE 0.9 mg/dL (0.6-1.3); POTASSIUM 3.9 mmol/L (3.5-5.1); TOTAL PROTEIN, SERUM 6.1 g/dL (6.4-8.2)
[2021-10-13] MEDS: BLOOD SUGAR DIAGNOSTIC 1 EACH STRIP IN SCH ×4 (07:50→21:56)
[2021-10-13 08:00] VITALS: BP 147/80
[2021-10-13] MEDS: SERTRALINE HCL 25 MG TABLET PO SCH (08:29)
[2021-10-13] MEDS: ASPIRIN 81 MG TAB.CHEW PO SCH (08:29)
[2021-10-13] MEDS: VITAMIN B COMP W-C 1 TAB TABLET PO SCH (08:29)
[2021-10-13] MEDS: GABAPENTIN 100 MG CAPSULE PO SCH ×2 (08:29→16:44)
[2021-10-13] MEDS: DEXAMETHASONE SOD PHOSPHATE 10 MG/ML VIAL IV SCH (08:29)
[2021-10-13] MEDS: LISINOPRIL (20MG) 20 MG TABLET PO SCH (08:30)
[2021-10-13] MEDS: EYE LEFTEYE SCH ×2 (08:34→17:06)
[2021-10-13] MEDS: [UNRECOGNIZED DRUG - OTHER] LEFTEYE SCH ×2 (08:34→17:06)
[2021-10-13] MEDS: EYE OP SCH ×3 (08:35→17:05)
[2021-10-13] MEDS: FLUTICASONE/VILANTEROL 1 EACH BLST.W.DEV IH SCH (08:35)
[2021-10-13] MEDS: PREDNISOLONE AC 1% OP SCH ×3 (08:35→17:05)
[2021-10-13 12:00] VITALS: BP 129/72
[2021-10-13] MEDS: INSULIN REGULAR, HUMAN 100 UNIT/ML 3 ML VIAL SQ PRN ×3 (12:05→22:05)
[2021-10-13 16:00] VITALS: BP 129/71
[2021-10-13] MEDS: AMITRIPTYLINE HCL 10 MG TABLET PO SCH (17:02)
--- NOTE | 2021-10-13 18:47 | NUR ---
RN CLOSING NOTES PATIENT ON BED, AWAKE, A/O X4, MAORI SPEAKING BUT ABLE TO UNDERSTAND SOME SAMOAN. REMAINS ON O2 @2LPM VIA N/C, SATURATION @96%, BREATHING EVEN AND UNLABORED, NO SIGNS OF ACUTE RESPIRATORY DISTRESS NOTED. ON TELEMONITOR WITH NSR @78. NO C/O PAIN OR DISCOMFORT. WITH JUNI ML #18G INTACT AND PATENT. ALL DUE MEDS GIVEN ORDERED, TOLERATED WELL. ISOLATION PRECAUTIONS OBSERVED AT ALL TIMES. SAFETY MEASURES IN PLACE, BED LOCKED AND IN LOWEST POSITION, SR UP X2, CALL LIGHT PLACED WITHIN EASY REACH. WILL ENDORSE TO NEXT SHIFT.
[2021-10-13 20:00] VITALS: BP 123/67
--- NOTE | 2021-10-13 20:00 | NUR ---
TOOL GRINDER OPERATOR EXTERNAL NOTE PT IN BED ASLEEP, AROUSABLE, NO DISTRESS OR DISCOMFORT NOTED. DENIES PAIN. ON TELE MONITOR SR 61. JUNI MIDLINE INTACT AND PATENT. NO S/S OF HYPO OR HYPERGLYCEMIA NOTED. ALL NEEDS ATTENDED. KEPT HER DRY AND CLEAN. VSS. CONTINUE TO MONITOR HER.
[2021-10-13] MEDS: REMDESIVIR (CHARGED) 100 MG in IV NS 0.9% 100 ML IV SCH (20:29)
[2021-10-13] MEDS: ATORVASTATIN 10 MG TABLET PO SCH (21:56)
[2021-10-14] VITALS: BP 138/72
[2021-10-14 04:00] VITALS: BP 116/80
[2021-10-14] MEDS: ENOXAPARIN SODIUM 40 MG/0.4 ML DISP.SYRIN SQ SCH (05:00)
[2021-10-14 07:09] LABS: BASOPHILS % (AUTO) 0.2 % (0.0-2.0); HEMATOCRIT 35 % (33-45); HEMOGLOBIN 11.7 g/dL (11.5-14.8); LYMPHOCYTES # (AUTO) 1.3 K/uL (0.8-4.8); LYMPHOCYTES % (AUTO) 13.6 % (20.0-44.0); MEAN CORPUSCULAR HGB CONC 33 g/dl (31.0-36.0); MEAN CORPUSCULAR VOLUME 87 fL (82-100); MONOCYTES # (AUTO) 0.7 K/uL (0.1-1.30); MONOCYTES % (AUTO) 7.1 % (2.0-12.0); NEUTROPHILS # (AUTO) 7.8 K/uL (1.8-8.9); NEUTROPHILS % (AUTO) 79.1 % (43.0-81.0); PLATELET COUNT (AUTO) 273 K/uL (150-450); RED BLOOD CELL COUNT(AUTO) 4.06 MIL/uL (4.0-5.2); WHITE BLOOD COUNT (AUTO) 9.9 K/uL (4.3-11.0)
--- NOTE | 2021-10-14 07:37 | NUR ---
RN OPENING NOTE PATIENT RECEIVED IN BED, RESTING. PATIENT ON 2L O2 NC WITH NO SIGNS OF LABORED BREATHING AT THIS TIME. GUEVARA CATHETER IN IN PLACE, PATENT AND DRAINING URINE. RIGHT UPPER ARM MIDLINE 18G IN PLACE WITH NO SIGNS OF INFILTRATION. NO DISTRESS NOTED AT THIS TIME. BED LOCKED AND IN LOWEST POSITION, CALL LIGHT WITHIN REACH, 2 SIDE RAILS UP. ALL SAFETY MEASURES IMPLEMENTED. WILL CONTINUE TO MONITOR.
[2021-10-14 08:00] VITALS: BP 141/79
[2021-10-14] MEDS: BLOOD SUGAR DIAGNOSTIC 1 EACH STRIP IN SCH ×2 (08:22→12:07)
[2021-10-14 08:25] LABS: CALCIUM, SERUM 8.4 mg/dL (8.5-10.1); CREATININE 0.9 mg/dL (0.6-1.3); POTASSIUM 4.1 mmol/L (3.5-5.1)
[2021-10-14] MEDS: LISINOPRIL (20MG) 20 MG TABLET PO SCH (08:44)
[2021-10-14] MEDS: DEXAMETHASONE SOD PHOSPHATE 10 MG/ML VIAL IV SCH (08:44)
[2021-10-14] MEDS: ASPIRIN 81 MG TAB.CHEW PO SCH (08:44)
[2021-10-14] MEDS: SERTRALINE HCL 25 MG TABLET PO SCH (08:44)
[2021-10-14] MEDS: GABAPENTIN 100 MG CAPSULE PO SCH (08:44)
[2021-10-14] MEDS: VITAMIN B COMP W-C 1 TAB TABLET PO SCH (08:44)
[2021-10-14] MEDS: PREDNISOLONE AC 1% OP SCH ×2 (08:55→12:07)
[2021-10-14] MEDS: [UNRECOGNIZED DRUG - OTHER] LEFTEYE SCH (08:55)
[2021-10-14] MEDS: EYE OP SCH ×2 (08:55→12:07)
[2021-10-14] MEDS: EYE LEFTEYE SCH (08:55)
[2021-10-14] MEDS: FLUTICASONE/VILANTEROL 1 EACH BLST.W.DEV IH SCH (08:55)
[2021-10-14 09:45] LABS: LYMPHOCYTES % (MANUAL) 5 % (16-48); MONOCYTES % (MANUAL) 6 % (0-11.0); NEUTROPHILS % (MANUAL) 89 (42-76)
[2021-10-14] MEDS ORDERED: PRED20TA PO (10:14)
[2021-10-14 12:00] VITALS: BP 139/81
--- NOTE | 2021-10-14 15:39 | NUR ---
RN NOTE PATIENT DISCHARGED PER ORDER. PATIENT MEDICALLY STABLE AT TIME OF DISCHARGE ON 2L O2 NC WITH NO SIGNS OF LABORED BREATHING. GUEVARA CATHETER AND IV LINES REMOVED. ALL NEEDS ATTENDED DURING SHIFT. PATIENT LEFT THE FACILITY BY AMBULANCE. REPORT GIVEN TO DARI AT [facility].
== END 2021-10-14 15:43 | DRG 177 ==
LOC: ER 15:56 → TELE1 18:02
PROVIDERS: ADMIT Internal Medicine; ATTEND Internal Medicine
PROC: XW033E5 Introduction of Remdesivir Anti-infective into Peripheral Vein, Percutaneous Approach, New Technology Group 5 (ICD-10-PCS; principal; 2021-10-09)
PROC: 05H533Z Insertion of Infusion Device into Right Subclavian Vein, Percutaneous Approach (ICD-10-PCS; 2021-10-09)
PROC: B546ZZA Ultrasonography of Right Subclavian Vein, Guidance (ICD-10-PCS; 2021-10-09)
DX: U07.1 COVID-19 (principal); N17.0 Acute kidney failure with tubular necrosis; J12.82 Pneumonia due to coronavirus disease 2019; J96.01 Acute respiratory failure with hypoxia; N39.0 Urinary tract infection, site not specified; I10 Essential (primary) hypertension; E86.0 Dehydration; E11.9 Type 2 diabetes mellitus without complications; E83.42 Hypomagnesemia; F32.A Depression, unspecified; Z87.891 Personal history of nicotine dependence; I95.9 Hypotension, unspecified; R07.81 Pleurodynia; H54.7 Unspecified visual loss; T38.0X5A Adverse effect of glucocorticoids and synthetic analogues, initial encounter; Y92.89 Other specified places as the place of occurrence of the external cause; D72.828 Other elevated white blood cell count; B96.89 Other specified bacterial agents as the cause of diseases classified elsewhere
CPT/HCPCS: 36415; 71045-TC; 80048-TC; 80053-TC; 80076-TC; 81001; 82728-TC; 82962-TC; 83605-TC; 83735-TC; 83880; 84100-TC; 84484-TC; 85025-TC; 85378-TC; 85610-TC; 85652-TC; 85730-TC; 86140-TC; 87040-TC; 87081-TC; 87086-TC; 93970-TC; A4216; G0378; J0692; J0696; J1100; J1644; J1650; J1815; J2060; J2270; J2930; J3370; J3475; J7030; J7050; J7060; U0003